=== PATIENT | male | born 1965 | race Caucasian/White ===

== ENCOUNTER → 2016-10-11 | Outpatient (CLI) | payer OTHER ==
--- NOTE | ~2016-10-11 | SPIROMETRY ---
[facility] [place] [address] SPIROMETRY Name: ADRIANNA RICARDO Room #: [id number] Admission: 10/11/16 Attend Phys: Greg Melo MD Discharge: Date of : 69 Report #: [id number] THIS REPORT FOR: //name// COPIES FOR: >> SPIROMETRY: (BTPS) Height: 68 in cm Weight: 166 lbs kg Exam Date: 10/11/16 PRE-RX POST-RX PRED BEST %PRED BEST %PRED %CHG FVC LITERS . 4.39 . 5.77 . 131 . . . FEV1 LITERS . 3.59 . 4.39 . 122 . . . FEV1/FVC % . 82 . 76 . 93 . . . JWY98-62% L/Sec . 3.76 . 3.68 . 98 . . . PEF L/SEC . 8.56 . 11.13 . 130 . . . FEF50/FIF50 UNITLESS . <1.00 . 0.62 . . . . >> INTERPRETATION/IMPRESSION: CC: Wali Melo DATE OF SERVICE: 10/11/2016 DATE OF STUDY: 10/11/2016 Patient's spirometry reveals normal spirometry. There is no post bronchodilator trial performed. <ELECTRONICALLY SIGNED> By: Bill Velasquez MD 10/16/16 1510 Bill Velasquez MD /benigno
== END ==
LOC: PUL 11:17
DX: J45.909 Unspecified asthma, uncomplicated (principal)

== ENCOUNTER → 2018-05-09 | Outpatient (CLI) | payer OTHER ==
[~2018-05-09] VITALS: Ht 172.7 cm; Wt 72.6 kg
[~2018-05-09] MED LIST: SYMBICORT80 MCG/4.1 INH; VENTOLIN HFA 1818 GM INH
--- NOTE | ~2018-05-09 | P ---
[facility] [place] [address] PROCEDURE REPORT Name: ADRIANNA RICARDO [id number] Admission: 05/09/18 Attend Phys: Jaret Martin Discharge: Date of : 69 Report #: [id number] THIS REPORT FOR: //name// CC: Jaret Sandoval MD DATE OF SERVICE: 05/09/2018 PROCEDURE PERFORMED: Colonoscopy. HISTORY OF PRESENT ILLNESS: The patient is a 52-year-old male who reports for routine colonoscopy. He has a family history of colon cancer in his father. He denies any symptoms. PROCEDURE: The risks and benefits of the procedure were explained to the patient, those risks including, but not limited to bleeding, perforation, and the risk of sedation. He understood these risks and gave informed consent. Sedation was given using propofol per anesthesia. Next, a digital rectal exam was initially performed, which was normal. Next, using a standard Olympus colonoscope, the scope was placed in the patient's anus and advanced under direct vision to the cecum. The overall prep was excellent. The cecum and ileocecal valve were normal in appearance. Ascending, transverse, descending and sigmoid colon were all normal. The rectal mucosa was normal. On retroflexion, no abnormalities were noted. The scope was then withdrawn and the procedure terminated. The patient tolerated the procedure well. IMPRESSION: Normal colonoscopy. RECOMMENDATIONS: Repeat colonoscopy in 5 years due to family history. Thank you for allowing me to participate in his care. By: [id number] Jaret Mahoney MD /nt
== END | disposition home or self-care (01) ==
LOC: GI 08:18
DX: Z12.11 Encounter for screening for malignant neoplasm of colon (principal); Z80.0 Family history of malignant neoplasm of digestive organs; J45.909 Unspecified asthma, uncomplicated; Z98.52 Vasectomy status; Z98.890 Other specified postprocedural states; Z79.899 Other long term (current) drug therapy
CPT/HCPCS: 62110; 62900

== ENCOUNTER 2020-02-24 14:10 | Emergency (ER) | payer OTHER ==
[~2020-02-24] VITALS: Ht 172.7 cm; Wt 81.7 kg
[2020-02-24] MEDS ORDERED: MULTIVITAMINS1 EAC7 PO (14:38)
[2020-02-24] MEDS ORDERED: GRAPE SEED50 MG PO (14:38)
[2020-02-24 15:15] VITALS: BP 142/76
== END 2020-02-24 15:16 | disposition home or self-care (01) ==
LOC: ER 14:10
DX: R50.9 Fever, unspecified (principal); M79.10 Myalgia, unspecified site; J45.909 Unspecified asthma, uncomplicated; Z20.828 Contact with and (suspected) exposure to other viral communicable diseases; Z79.899 Other long term (current) drug therapy

== ENCOUNTER 2020-03-08 08:52 | Emergency (ER) | payer OTHER ==
[~2020-03-08] VITALS: Ht 172.7 cm; Wt 81.7 kg
[~2020-03-08 08:52] MED LIST changes: +GRAPE SEED50 MG PO; +MULTIVITAMINS1 EAC7 PO
[2020-03-08 09:30] LABS: ABSOLUTE NEUTROPHILS 2.5 thou/uL (1.4-8.2); BASOPHILS 0.9 % (0.0-2.0); EOSINOPHILS 3.8 % (0.0-3.0); HEMATOCRIT 40.8 % (42.0-52.0); LYMPHOCYTES 42.3 % (24.0-44.0); MCH 31.3 pg (26.0-34.0); MCHC 34.4 g/dL (28.0-37.0); MCV 90.9 fL (80.0-100.0); MONOCYTES 10.6 % (1.0-8.0); PLATELET COUNT 474 thou/uL (150-400); POLYS 42.4 % (36.0-66.0); RBC 4.49 mil/uL (4.50-6.00); WBC 5.8 thou/uL (4.0-11.0)
[2020-03-08 09:42] LABS: ANION GAP 4 mmol/L (7-16); BUN 11 mg/dL (7-18); CALCIUM 9.6 mg/dL (8.5-10.1); CHLORIDE 101 mmol/L (98-107); CO2 30 mmol/L (21-32); CREATININE 1.1 mg/dL (0.7-1.3); GLUCOSE 91 mg/dL (74-106); SODIUM 135 mmol/L (136-145)
[2020-03-08 09:46] LABS: POTASSIUM 4.9 mmol/L (3.5-5.1)
[2020-03-08 09:51] LABS: TROPONIN-I <0.06 ng/mL (<0.06)
[2020-03-08 10:20] VITALS: BP 133/67
--- NOTE | 2020-03-08 16:04 | EKG ---
[facility] [place] [address] ELECTROCARDIOGRAM REPORT Name: ADRIANNA RICARDO Room #: DEP [facility]#: [id number] Admission: 03/08/20 Attend Phys: Discharge: 03/08/20 Date of : 69 Report #: [id number] THIS REPORT FOR: cc: Wali Sandoval MD, Rene P. MD Couchonnal, Luis F. MD ~ THIS REPORT FOR: //name// [facility] ED Test Date: 2020-03-08 Test Time: 09:05:47 Pat Name: ADRIANNA RICARDO Department: Room: Gender: Vehicle Dismantler: MINDY ZIMMERMAN : 1965 Requested By: Abhijit Martin Order Number: [id number] MD: Charlie Dodson Measurements Intervals [place] Rate: 55 P: 56 PA: 167 QRS: 58 QRSD: 104 T: 35 QT: 392 QTc: 375 Interpretive Statements Sinus rhythm ST elev, probable normal early repol pattern Baseline wander in lead(s) V3,V5,V6 No previous ECG available for comparison Electronically Signed On 03-08-2020 16:03:15 CDT by Charlie Dodson [email or web address] <ELECTRONICALLY SIGNED> By: Charlie Dodson MD 03/08/20 1603 0905 4 Charlie Dodson MD /EPI
== END 2020-03-08 10:43 | disposition home or self-care (01) ==
LOC: ER 08:52
PROVIDERS: Emergency Medicine
DX: U07.1 COVID-19 (principal); R07.89 Other chest pain; R12 Heartburn; J45.909 Unspecified asthma, uncomplicated; Z98.890 Other specified postprocedural states; Z79.899 Other long term (current) drug therapy

== ENCOUNTER → 2020-03-14 | Outpatient (CLI) | payer OTHER | LOC: LAB 07:50 | PROVIDERS: ATTEND Family Medicine | DX: U07.1 COVID-19 (principal) ==

== ENCOUNTER → 2020-03-18 | Outpatient (CLI) | payer OTHER | LOC: LAB | PROVIDERS: ATTEND Family Medicine | DX: U07.1 COVID-19 (principal) ==

== ENCOUNTER → 2020-03-23 | Outpatient (CLI) | payer OTHER | LOC: LAB 08:00 | PROVIDERS: ATTEND Family Medicine | DX: U07.1 COVID-19 (principal) ==

== ENCOUNTER → 2020-04-21 | Outpatient (CLI) | payer OTHER | LOC: LAB 12:16 | PROVIDERS: ATTEND Family Medicine | DX: U07.1 COVID-19 (principal) ==

== ENCOUNTER → 2020-06-09 | Outpatient (CLI) | payer OTHER ==
[2020-06-09 08:44] LABS: ABSOLUTE NEUTROPHILS 1.8 thou/uL (1.4-8.2); BASOPHILS 0.7 % (0.0-2.0); EOSINOPHILS 7.5 % (0.0-3.0); HEMATOCRIT 41.2 % (42.0-52.0); LYMPHOCYTES 38.2 % (24.0-44.0); MCH 31.5 pg (26.0-34.0); MCV 92.8 fL (80.0-100.0); MONOCYTES 10.2 % (1.0-8.0); PLATELET COUNT 228 thou/uL (150-400); POLYS 43.4 % (36.0-66.0); RBC 4.44 mil/uL (4.50-6.00); RDW 13.6 % (10.5-14.5); WBC 4.1 thou/uL (4.0-11.0)
[2020-06-09 09:04] LABS: ANION GAP 10 mmol/L (7-16); BUN 13 mg/dL (7-18); CALCIUM 8.9 mg/dL (8.5-10.1); CHLORIDE 104 mmol/L (98-107); CHOLESTEROL 160 mg/dL (<200); CO2 28 mmol/L (21-32); GLUCOSE 96 mg/dL (74-106); HDL CHOLESTEROL 44 mg/dL (>40); LDL CHOLESTEROL 92 mg/dL (<100); POTASSIUM 4.4 mmol/L (3.5-5.1); SGOT 20 U/L (15-37); SGPT 27 U/L (30-65); SODIUM 142 mmol/L (136-145); TC:HDL 3.6 Ratio (Not establshd); TOTAL BILIRUBIN 0.6 mg/dL (0.2-1.0); TOTAL PROTEIN 6.9 g/dL (6.4-8.2); TRIGLYCERIDE 121 mg/dL (<150); VLDL 24 mg/dL (<40)
== END ==
LOC: LABMALL 08:13
PROVIDERS: ATTEND Family Medicine
DX: Z12.5 Encounter for screening for malignant neoplasm of prostate (principal); E78.00 Pure hypercholesterolemia, unspecified